=== PATIENT | male | born 1970 | race Hispanic/Latino ===

== ENCOUNTER 2023-03-23 07:32 | Observation (INO) | payer OTHER ==
[2023-03-23 08:05] LABS: #Eosinphils 0.1 thou/uL (0.0-0.7); #Monocytes 0.2 thou/uL (0.11-0.59); #Neutrophils 5.2 thou/uL (1.40-6.50); %Basophils 0.2 % (0.0-1.0); %Lymphocytes 12.4 % (21.0-51.0); %Monocytes 3.5 % (0.0-10.0); %Neutrophils 82.6 % (42.0-75.0); Hematocrit 48.3 % (42.0-52.0); Hemoglobin 16.3 g/dL (14.0-18.0); Mean Corpuscular HGB CONC 33.7 g/dL (32.0-36.0); Mean Corpuscular Hemoglobin 31.8 pg (27.0-31.0); Mean Corpuscular Volume 94.2 fl (78.0-98.0); Mean Platelet Volume 10.6 fL (7.4-10.4); Platelet Count 155 10x3/uL (130-400); RBC Distribution Width 13.3 % (11.5-14.5); Red Blood Cell (RBC) Count 5.13 mill/uL (4.70-6.10); White Blood Cell (WBC) Count 6.3 10x3/uL (4.8-10.8)
[2023-03-23 08:14] LABS: Hemoglobin A1c 11.3 % (4.0-6.0)
[2023-03-23] MEDS ORDERED: Aspirin 325 MG TAB ONE (08:26)
[2023-03-23 08:27] LABS: ALT (SGPT) 61 U/L (8-55); AST (SGOT) 38 U/L (5-34); Albumin 4.2 g/dL (3.5-5.0); Alkaline Phosphatase 84 U/L (40-110); Anion Gap 14 mmol/L (10-20); BUN (Urea Nitrogen) 14 mg/dL (8.4-25.7); Bilirubin, Total 1.2 mg/dL (0.2-1.2); Calc. Creatinine Clearance 0 mL/min (70-130); Calcium 9.2 mg/dL (7.8-10.44); Carbon Dioxide 22 mmol/L (22-29); Chloride 101 mmol/L (98-107); Estimated GFR 101; Globulin 3.7 g/dL (2.4-3.5); Glucose 263 mg/dL (70-105); Potassium 3.9 mmol/L (3.5-5.1); Protein, Total 7.9 g/dL (6.0-8.3); Sodium 133 mmol/L (136-145)
[2023-03-23 09:04] LABS: INR-International Normal Ratio 1.1; Prothrombin Time 14.1 sec (12.0-14.7)
[2023-03-23 09:05] LABS: PTT 28.2 sec (22.9-36.1)
[2023-03-23 09:09] LABS: SARS-CoV-2 NAA Rapid Test Not Detected (NotDetected)
[2023-03-23] MEDS ORDERED: Glucagon 1 MG/ML KIT IM PRN (10:13)
[2023-03-23] MEDS ORDERED: Dextrose 5% in Water 1,000 ML IV PRN (10:13)
[2023-03-23] MEDS ORDERED: Dextrose 50% Abboject 50 ML SYRINGE SLOW IVP PRN (10:13)
[2023-03-23] MEDS ORDERED: Ondansetron PF 4 MG/2 ML Vial IVP PRN (10:14)
[2023-03-23] MEDS ORDERED: Acetaminophen 325 MG TAB PO PRN (10:14)
[2023-03-23] MEDS ORDERED: HYDROcodone/Acetaminophen 5/325 mg Tablet PO PRN (10:14)
[2023-03-23] MEDS ORDERED: hydrALAZINE 20 MG/ML VIAL SLOW IVP PRN (10:14)
[2023-03-23] MEDS ORDERED: Insulin Glargine 30 UNITS/0.3 ML VIAL SC SCH ×2 (10:18→12:30)
[2023-03-23 11:44] VITALS: BMI 25.8
[2023-03-23] MEDS ORDERED: Lorazepam 1 MG TAB PO PRN (11:56)
[2023-03-23] MEDS ORDERED: Lorazepam 2 MG/ML VIAL IM PRN (11:56)
[2023-03-23] MEDS ORDERED: Electrolyte Replacement Protocol 1 EACH FS SCH (12:00)
[2023-03-23] MEDS ORDERED: Electrolyte Replacement Protocol FS PRN (12:30)
[2023-03-23] MEDS ORDERED: Folic Acid 1 MG TAB PO SCH (12:30)
[2023-03-23] MEDS ORDERED: Multivit, Therapeutic 1 TAB PO SCH (12:30)
[2023-03-23] MEDS ORDERED: Lorazepam 1 MG TAB ONE ×2 (12:56→19:11)
[2023-03-23] MEDS ORDERED: Folic Acid 1 MG TAB ONE (12:56)
[2023-03-23] MEDS ORDERED: Multivit, Therapeutic 1 TAB ONE (12:57)
[2023-03-23] MEDS ORDERED: Thiamine HCl 200 MG/2 ML VIAL ONE (12:57)
[2023-03-23] MEDS: Lorazepam 1 MG TAB PO SCH ×2 (13:10→19:29)
[2023-03-23] MEDS: Thiamine HCl 200 MG/2 ML VIAL SLOW IVP SCH (13:11)
[2023-03-23 13:47] LABS: Troponin I 0.031 ng/mL (< 0.028)
[2023-03-23] MEDS ORDERED: Heparin 5,000 UNITS/ML VIAL ONE (14:10)
[2023-03-23] MEDS: Heparin 5,000 UNITS/ML VIAL SC SCH ×2 (14:34→22:07)
[2023-03-23 14:47] LABS: Syphilis Antibody Nonreactive (Nonreactive); Syphilis Antibody Index 0.07 S/CO (<1.00 Non-Reactive)
[2023-03-23] MEDS ORDERED: Atorvastatin Calcium 40 MG TAB PO SCH (21:00)
[2023-03-24] MEDS: Lorazepam 1 MG TAB PO SCH ×3 (00:18→13:12)
[2023-03-24 06:06] LABS: #Eosinphils 0.1 thou/uL (0.0-0.7); #Monocytes 0.4 thou/uL (0.11-0.59); #Neutrophils 2.3 thou/uL (1.40-6.50); %Basophils 0.2 % (0.0-1.0); %Eosinophils 3.5 % (0.0-10.0); %Lymphocytes 31.4 % (21.0-51.0); %Monocytes 8.9 % (0.0-10.0); Hematocrit 43.6 % (42.0-52.0); Hemoglobin 14.5 g/dL (14.0-18.0); Mean Corpuscular HGB CONC 33.3 g/dL (32.0-36.0); Mean Corpuscular Hemoglobin 31.7 pg (27.0-31.0); Mean Corpuscular Volume 95.2 fl (78.0-98.0); Mean Platelet Volume 10.8 fL (7.4-10.4); Platelet Count 132 10x3/uL (130-400); RBC Distribution Width 13.2 % (11.5-14.5); Red Blood Cell (RBC) Count 4.58 mill/uL (4.70-6.10); White Blood Cell (WBC) Count 4.1 10x3/uL (4.8-10.8)
[2023-03-24] MEDS: HumaLOG 300 UNITS/3 ML VIAL SC PRN ×2 (06:08→13:12)
[2023-03-24 06:33] LABS: ALT (SGPT) 49 U/L (8-55); AST (SGOT) 31 U/L (5-34); Albumin 3.4 g/dL (3.5-5.0); Alkaline Phosphatase 90 U/L (40-110); Anion Gap 11 mmol/L (10-20); BUN (Urea Nitrogen) 14 mg/dL (8.4-25.7); Bilirubin, Total 0.6 mg/dL (0.2-1.2); Calc. Creatinine Clearance 137 mL/min (70-130); Calcium 8.5 mg/dL (7.8-10.44); Carbon Dioxide 22 mmol/L (22-29); Cardiac Risk 3.1 (Less than 4.5); Chloride 105 mmol/L (98-107); Cholesterol 156 mg/dl (< 200 Desired); Estimated GFR 108; Globulin 3.1 g/dL (2.4-3.5); Glucose 226 mg/dL (70-105); HDL Cholesterol 51 mg/dL (>60 Neg Risk); LDL Cholesterol, Calculated 87 mg/dL; Potassium 3.8 mmol/L (3.5-5.1); Protein, Total 6.5 g/dL (6.0-8.3); Sodium 134 mmol/L (136-145); Triglycerides 90 mg/dL (Less than 150)
[2023-03-24] MEDS ORDERED: Folic Acid 1 MG TAB PO SCH (09:00)
[2023-03-24] MEDS ORDERED: Multivit, Therapeutic 1 TAB PO SCH (09:00)
[2023-03-24] MEDS ORDERED: Aspirin 81 mg Enteric Coated Tablet PO SCH (09:00)
[2023-03-24] MEDS ORDERED: Insulin Glargine 30 UNITS/0.3 ML VIAL SC SCH (09:00)
[2023-03-24] MEDS: Heparin 5,000 UNITS/ML VIAL SC SCH ×2 (09:06→16:55)
[2023-03-24] MEDS ORDERED: Lorazepam 1 MG TAB PO PRN (11:56)
[2023-03-24] MEDS: Thiamine HCl 200 MG/2 ML VIAL SLOW IVP SCH (13:12)
[2023-03-24 16:50] VITALS: BP 134/90; TEMP 97.6
[2023-03-24] MEDS ORDERED: metFORMIN 500 MG TAB PO SCH (17:00)
[2023-03-25] MEDS ORDERED: Lorazepam 1 MG TAB PO PRN (11:56)
[2023-03-25] MEDS ORDERED: Lorazepam 0.5 MG TAB PO SCH (12:00)
[2023-03-26] MEDS ORDERED: FLU VACC QS2023-24(6MOS UP)/PF 60 MCG/0.5 ML SYRINGE IM ONE (09:00)
[2023-03-26] MEDS ORDERED: Thiamine 100 MG TAB PO SCH (09:00)
[2023-03-26] MEDS ORDERED: Lorazepam 0.5 MG TAB PO PRN (11:56)
== END 2023-03-24 17:09 | disposition home or self-care (01) ==
LOC: SUATTDRO 07:32 → ERS 07:32 → ERHOLD 10:29 → 2SE 20:38
PROVIDERS: ADMIT Internal Medicine; ATTEND Family Medicine
PROC: B246ZZ4 Ultrasonography of Right and Left Heart, Transesophageal (ICD-10-PCS; principal; 2023-03-24)
DX: E11.65 Type 2 diabetes mellitus with hyperglycemia (principal); I10 Essential (primary) hypertension; F10.10 Alcohol abuse, uncomplicated
CPT/HCPCS: 36415; 36416; 70450; 70551; 71045; 72141; 80053; 80061; 83036; 83735; 84443; 84484; 85025; 85610; 85730; 86780; 93005; 93306; 96372; 96376; G0378; J1644; J1815; J3411; U0002

== ENCOUNTER 2024-03-09 02:13 | Emergency (ER) | payer OTHER ==
[~2024-03-09 02:13] MED LIST: Acetaminophen 500 MG TAB ONE; Cephalexin 250 MG CAP ONE; Sulfameth/Trimethoprim DS 800-160mg TAB ONE
== END 2024-03-09 02:41 | disposition home or self-care (01) ==
LOC: ERS 02:13
DX: L03.211 Cellulitis of face (principal); L03.115 Cellulitis of right lower limb
CPT/HCPCS: 99282